=== PATIENT | male | born 1975 | race Hispanic/Latino ===

== ENCOUNTER 2020-01-22 19:31 | Emergency (ER) | payer SELFPAY ==
[2020-01-22] MEDS ORDERED: ALUM-MAG HYDROXIDE-SIMETHICONE 200-200-20MG/5ML ORAL LIQD 30 ML PO ONE (19:35)
[2020-01-22] MEDS ORDERED: PANTOPRAZOLE 40 MG INJ IV ONE (19:35)
[2020-01-22] MEDS ORDERED: ACETAMINOPHEN 500 MG TAB PO ONE (19:35)
--- NOTE | 2020-01-22 20:21 | XRay Report ---
CHEST 1 VIEW INDICATION / CLINICAL INFORMATION: Chest Pain. COMPARISON: None available. FINDINGS: SUPPORT DEVICES: None. HEART / MEDIASTINUM: No significant abnormality. LUNGS / PLEURA: No significant pulmonary or pleural abnormality.. No pneumothorax. ADDITIONAL FINDINGS: No significant additional findings. IMPRESSION: 1. No acute findings. Signer Name: Jerzy Luna MD Signed: 01/22/2020 8:16 PM Workstation Name: [id number]
[2020-01-22 20:26] LABS: Basophils % (Auto) 0.3 % (0.0-1.8); Eosinophils % (Auto) 0.1 % (0.0-4.3); Hematocrit 43.8 % (35.5-45.6); Lymphocytes % (Auto) 24.5 % (13.4-35.0); Mean Corpuscular HGB Conc 34 % (32-34); Mean Corpuscular Volume 97 fl (84-94); Monocytes # (Auto) 0.8 K/mm3 (0.0-0.8); Monocytes % (Auto) 10.1 % (0.0-7.3); Platelet Count 244 K/mm3 (140-440); Red Blood Count 4.53 M/mm3 (3.65-5.03); Red Cell Distribution Width 12.8 % (13.2-15.2)
--- NOTE | 2020-01-22 20:28 | Emergency Department Report ---
ED Chest Pain HPI - General Chief Complaint: Chest Pain Stated Complaint: CHEST PAIN Time Seen by Provider: 01/22/20 20:00 Source: patient, EMS Mode of arrival: Stretcher Limitations: No Limitations - History of Present Illness Initial Comments: 44-year-old male presents to the emergency department via EMS with complaint of some left-sided chest pain that started around 6:15 PM. Patient was eating some food when the symptoms began. He happened to be [place] the street from a fire station so he went there and was then brought to the emergency department. He did not take anything or receive anything for his symptoms prior to presentation. He has a past medical history that includes [id number] diabetes and hypertension. He is a former smoker and denies any illicit drug use. No recent travel or sick contacts at home. He denies any fever, shortness of breath, nausea or vomiting, back pain, lower extremity swelling. He does not have a primary care physician. No family history of early cardiac disease or events. Severity scale (0 -10): 3 - Related Data Allergies Allergy/AdvReac Type Severity Reaction Status Date / Time No Known Allergies Allergy Unverified 01/22/20 20:23 Heart Score - HEART Score History: Slightly suspicious EKG: Normal Age: 45-65 Risk factors: 1-2 risk factors Troponin: < normal limit HEART Score: 2 - Critical Actions Critical Actions: 0-3 pts:0.9-1.7%risk of adverse cardiac event.Candidate for [facility] ED Review of Systems ROS: Stated complaint: CHEST PAIN Other details as noted in HPI Comment: All other systems reviewed and negative Constitutional: denies: chills, fever Eyes: denies: eye pain, vision change ENT: denies: ear pain, throat pain Respiratory: denies: cough, shortness of breath Cardiovascular: chest pain. denies: palpitations Gastrointestinal: denies: abdominal pain, vomiting Genitourinary: denies: dysuria, discharge Musculoskeletal: denies: back pain, arthralgia Skin: denies: rash, lesions Neurological: denies: headache, weakness ED Past Medical Hx - Past Medical History Previous Medical History?: Yes Hx Diabetes: Yes - Surgical History Past Surgical History?: Yes Additional Surgical History: Left leg with titanium - Social History Smoking Status: Never Smoker Substance Use Type: None ED Physical Exam - General Limitations: No Limitations - Other Other exam information: GENERAL: The patient is well-developed well-nourished. HENT: Normocephalic. Atraumatic. Patient has moist mucous membranes. EYES: Extraocular motions are intact. NECK: Supple. Trachea is midline. CHEST/LUNGS: Clear to auscultation. There is no respiratory distress noted. There is some reproducible left-sided chest pain to palpation of the chest wall without any crepitus or deformity. HEART/CARDIOVASCULAR: Regular. There is mild tachycardia. There is no murmur. ABDOMEN: Abdomen is soft, nontender. Patient has normal bowel sounds. SKIN: Skin is warm and dry. NEURO: The patient is awake, alert, and oriented. The patient is cooperative. The patient has no focal neurologic deficits. Normal speech. MUSCULOSKELETAL: There is no tenderness or deformity. There is no limitation range of motion. ED Course Vital Signs 01/22/20 01/22/20 01/22/20 19:35 19:40 19:45 Temperature 98.2 F Pulse Rate 113 H 112 H Respiratory 18 18 23 Rate Blood Pressure 146/92 Blood Pressure 129/91 [Left] O2 Sat by Pulse 96 96 95 Oximetry 01/22/20 01/22/20 01/22/20 20:00 20:08 20:15 Temperature Pulse Rate 107 H 104 H Respiratory 17 22 18 Rate Blood Pressure 140/87 137/85 Blood Pressure [Left] O2 Sat by Pulse 97 96 Oximetry 01/22/20 01/22/20 01/22/20 20:19 20:30 20:45 Temperature 98.2 F Pulse Rate 113 H 107 H 104 H Respiratory 18 17 23 Rate Blood Pressure 129/91 135/86 133/88 Blood Pressure [Left] O2 Sat by Pulse 96 97 95 Oximetry 01/22/20 01/22/20 01/22/20 21:00 21:08 21:15 Temperature Pulse Rate 103 H 106 H Respiratory 20 18 22 Rate Blood Pressure 132/88 127/89 Blood Pressure [Left] O2 Sat by Pulse 96 Oximetry 01/22/20 01/22/20 01/22/20 21:30 21:45 22:00 Temperature Pulse Rate 102 H 105 H 106 H Respiratory 22 22 22 Rate Blood Pressure 136/85 142/90 140/88 Blood Pressure [Left] O2 Sat by Pulse 94 94 Oximetry 01/22/20 01/22/20 01/22/20 22:15 22:30 22:45 Temperature Pulse Rate 107 H 103 H 103 H Respiratory 23 24 14 Rate Blood Pressure 131/82 130/80 133/83 Blood Pressure [Left] O2 Sat by Pulse 94 96 Oximetry LUKE score - Luke Score Age > 65: (0) No Aspirin use within the Past 7 Days: (0) No 3 or more CAD Risk Factors: (0) No 2 or more Angina events in past 24 hrs: (1) Yes Known CAD with more than 50% Stenosis: (0) No Elevated Cardiac Markers: (0) No ST Deviation Greater than 0.5mm: (0) No LUKE Score: 1 ED Medical Decision Making - Lab Data Result diagrams: 01/22/20 19:52 01/22/20 19:52 - EKG Data -: EKG Interpreted by Me EKG shows normal: sinus rhythm, axis, intervals, QRS complexes (Low voltage), ST-T waves Rate: tachycardia (102 bpm) - EKG Data When compared to previous EKG there are: previous EKG unavailable Interpretation: normal EKG (With mild tachycardia at 102 bpm) - Radiology Data Radiology results: image reviewed interpreted by me: Chest x-ray does not show any acute process. There are no pleural effusions, obvious pneumonia and there is no pneumothorax. No significant cardiomegaly. - Medical Decision Making This patient presents to the emergency department the complaint of some left- sided chest pain that started prior to presentation. On examination he has normal sounding heart and lung sounds to auscultation. He does not appear in any respiratory or acute distress. There is some reproducible chest pain to palpation of the chest wall. An EKG was done that does not have any morphology consistent with ST elevation myocardial infarction or any significant dysrhythmia. Chest x-ray does not show any pneumonia, pleural effusions, pneumothorax, focal consolidation, or any other acute process. Patient does present with hyperglycemia with a blood sugar of about 380 but does not appear in diabetic ketoacidosis. He was given a liter of IV fluid and 1 dose of IV insulin and his blood sugar came down to about 140 on Accu-Chek. The rest of the patient's labs are unremarkable including CBC, metabolic panel, negative troponins x2 and a negative d-dimer. Patient is low on the heart and LUKE score. His vital signs have been reassuring throughout his ED course. For all these reasons patient appears safe for discharge home at this time. The patient is without a permanent residence at this time, but he does allegedly have a cell phone number for contact. His contact information has been sent over to the [facility], and someone from their office should be contacting him shortly for close outpatient follow-up as part of our [facility] low risk chest pain protocol. He has been instructed to return to the emergency department with any worsening of his symptoms or with any acute distress. Critical Care Time: No Critical care attestation.: If time is entered above; I have spent that time in minutes in the direct care of this critically ill patient, excluding procedure time. ED Disposition Clinical Impression: Hyperglycemia Chest pain Qualifiers: Chest pain type: unspecified Qualified Code(s): R07.9 - Chest pain, unspecified Disposition: DC- TO HOME OR SELFCARE Is pt being admited?: No Condition: Stable Instructions: Chest Pain (ED), Diabetic Hyperglycemia (ED) Additional Instructions: Please follow-up with a primary care physician in the next few days. I am sending your contact information to the [facility], and someone from their office should be contacting you shortly for close outpatient follow-up. I am also giving you a referral for 1 of their club manager, Dr. Rust. Return to the emergency department with any worsening of your symptoms or with any acute distress. Try to stay away from foods that are high in sugar, carbohydrates and starches. Keep a blood sugar log. Take your medications as prescribed. Referrals: JOSIE ENGLAND MD [Primary Care Provider] - 2-3 Days ILAN RUST MD [Staff Physician] - 2-3 Days [facility] [Provider Group] - 2-3 Days Time of Disposition: 23:45
[2020-01-22 20:40] LABS: Alanine Aminotransferase 40 units/L (7-56); Albumin 3.8 g/dL (3.9-5); BUN/Creatinine Ratio 9; Blood Urea Nitrogen 8 mg/dL (9-20); Calcium 9.7 mg/dL (8.4-10.2); Hemolysis Index 10
[2020-01-22] MEDS ORDERED: SODIUM CHLORIDE 0.9% 1000 ML 1,000 ML IV ONE (20:47)
[2020-01-22] MEDS ORDERED: INSULIN REGULAR, HUMAN 100 UNIT/ML 3ML VIAL IV SCH (21:00)
[2020-01-22] MEDS ORDERED: INSULIN REGULAR, HUMAN 100 UNITS/1 ML ONE (21:30)
[2020-01-22 22:57] VITALS: BP 133/83
== END 2020-01-22 23:50 | disposition home or self-care (01) ==
LOC: ED 19:31
DX: E11.65 Type 2 diabetes mellitus with hyperglycemia (principal); R07.89 Other chest pain
CPT/HCPCS: 36415; 71045; 80053; 82962; 84484; 85025; 85379; 93005; 96361; 96374; 96375; 99285; C9113; J7030; J1815